=== PATIENT | male | born 1985 | race Caucasian/White ===

== ENCOUNTER 2022-09-22 17:55 | Emergency (ER) | payer OTHER ==
[2022-09-22 18:27] VITALS: BP 125/72; PULSE 54; RESP 18; TEMP 98.1; BMI 25.4
[2022-09-22] MEDS ORDERED: predniSONE 20 MG TABLET (UD) PO ONE (19:50)
[2022-09-22] MEDS ORDERED: SULFAMETHOXAZOLE/TRIMETHOPRIM 800MG/160MG D.S. TABLET PO ONE (19:50)
[2022-09-22] MEDS ORDERED: IBUPROFEN 600 MG TABLET (FP) PO ONE ×2 (19:50→20:11)
[2022-09-22] MEDS ORDERED: predniSONE 20 MG TABLET (UD) ONE (20:11)
[2022-09-22] MEDS ORDERED: SULFAMETHOXAZOLE/TRIMETHOPRIM 800MG/160MG D.S. TABLET ONE (20:11)
== END 2022-09-22 20:44 | disposition home or self-care (01) ==
LOC: JERFT 17:55
DX: L30.9 Dermatitis, unspecified (principal)
CPT/HCPCS: 99283-25